=== PATIENT | female | born 1940 | race Caucasian/White ===

== ENCOUNTER 2020-06-15 11:21 | Emergency (ER) | payer MEDICARE ==
[~2020-06-15] VITALS: Ht 149.8 cm; Wt 63.5 kg
== END 2020-06-15 13:54 | disposition home or self-care (01) ==
LOC: ED 11:21
DX: R04.0 Epistaxis (principal); I10 Essential (primary) hypertension; Z88.0 Allergy status to penicillin; Z98.890 Other specified postprocedural states

== ENCOUNTER 2021-04-18 06:48 | Inpatient (IN) | payer MEDICARE ==
[~2021-04-18] VITALS: Ht 152.4 cm; Wt 66.5 kg
[2021-04-18 06:49] VITALS: BP 95/61
[2021-04-18] MEDS ORDERED: AMLODIPINE BESYL5 MG PO (06:54)
[2021-04-18] MEDS ORDERED: QUINAPRIL10 M1 PO (06:54)
[2021-04-18 07:30] LABS: BASO # 0.1 10*3/uL (0.0-0.1); BASO % 0.4 % (0.0-1.0); EOS # 0.2 10*3/uL (0.0-0.4); HEMATOCRIT 36.9 % (37.0-47.0); LYMPH # 1.7 10*3/uL (1.3-4.4); LYMPH % 14.1 % (27.0-41.0); MEAN CELL VOLUME 84.6 fl (81.0-99.0); MEAN CORPUSCULAR HGB 26.6 pg (27.0-31.0); MEAN CORPUSCULAR HGB CONC 31.4 g/dl (33.0-37.0); MEAN PLATELET VOLUME 9.2 fl (9.6-12.3); MONO # 0.7 10*3/uL (0.1-1.0); MONO % 5.9 % (3.0-9.0); NEUT # 9.2 10*3/uL (2.3-7.9); NEUT % 77.1 % (47.0-73.0); PLATELET COUNT AUTOMATED 245 10*3/uL (130-400); RED BLOOD COUNT 4.36 10*6/uL (4.10-5.10); RED CELL DISTRI WIDTH 14.4 % (0-14.5); WHITE BLOOD COUNT 11.9 10*3/uL (4.8-10.8)
[2021-04-18 07:40] LABS: ACT PARTIAL THROMBO TIME 23.6 SECONDS (20.0-32.1); INTERNATIONAL NORM RATIO 1.1 (2.0-3.5)
[2021-04-18 07:46] LABS: CREATININE 1.33 mg/dL (0.55-1.02); POTASSIUM 3.4 mmol/L (3.5-5.1); TOTAL PROTEIN 6.8 gm/dL (6.4-8.2)
[2021-04-18 08:53] VITALS: BP 112/73
[2021-04-18 11:00] VITALS: BP 119/69
[2021-04-18 11:45] VITALS: BP 194/81
[2021-04-18 16:00] VITALS: BP 116/66
[2021-04-18 20:00] VITALS: BP 165/94
[2021-04-19] VITALS: BP 174/84
[2021-04-19 00:23] VITALS: BP 174/84
[2021-04-19 06:48] LABS: BASO % 0.3 % (0.0-1.0); EOS # 0.3 10*3/uL (0.0-0.4); EOS % 2.8 % (1.0-4.0); HEMATOCRIT 30.2 % (37.0-47.0); LYMPH % 21.8 % (27.0-41.0); MEAN CELL VOLUME 83.7 fl (81.0-99.0); MEAN CORPUSCULAR HGB 26.9 pg (27.0-31.0); MEAN CORPUSCULAR HGB CONC 32.1 g/dl (33.0-37.0); MEAN PLATELET VOLUME 9.5 fl (9.6-12.3); MONO # 0.7 10*3/uL (0.1-1.0); MONO % 7.4 % (3.0-9.0); NEUT # 6.1 10*3/uL (2.3-7.9); NEUT % 67.4 % (47.0-73.0); PLATELET COUNT AUTOMATED 200 10*3/uL (130-400); RED BLOOD COUNT 3.61 10*6/uL (4.10-5.10); RED CELL DISTRI WIDTH 14.7 % (0-14.5); WHITE BLOOD COUNT 9.1 10*3/uL (4.8-10.8)
[2021-04-19 06:54] LABS: ACT PARTIAL THROMBO TIME 23.5 SECONDS (20.0-32.1)
[2021-04-19 07:05] LABS: ALBUMIN 2.8 gm/dl (3.1-4.5); CHLORIDE 112 mmol/L (98-107); CREATININE 0.86 mg/dL (0.55-1.02); SGOT/AST 19 IU/L (3-35); SGPT/ALT 29 U/L (12-78); SODIUM 141 mmol/L (136-145)
[2021-04-19 07:15] LABS: ALKALINE PHOSPHATASE 67 U/L (45-117); THYROID STIM HORMONE (HS) 0.512 uIU/ml (0.358-4.75); TOTAL PROTEIN 6.1 gm/dL (6.4-8.2)
[2021-04-19 07:19] LABS: BUN 25 mg/dl (7-24)
[2021-04-19 08:00] VITALS: BP 191/88
[2021-04-19 09:41] VITALS: BP 163/89
[2021-04-19 12:00] VITALS: BP 182/96
[2021-04-19 13:58] VITALS: BP 133/82
== END 2021-04-19 15:07 | disposition home or self-care (01) | DRG 314 ==
LOC: ED 06:48 → EDHOLD 09:58 → 4E 09:58
PROVIDERS: Emergency Medicine; Family Medicine; ADMIT Internal Medicine; ATTEND Internal Medicine
DX: I95.9 Hypotension, unspecified (principal); N17.0 Acute kidney failure with tubular necrosis; E87.2 Acidosis; E44.0 Moderate protein-calorie malnutrition; D64.9 Anemia, unspecified; E87.6 Hypokalemia; E83.41 Hypermagnesemia; R73.9 Hyperglycemia, unspecified; I10 Essential (primary) hypertension; R04.0 Epistaxis; M40.202 Unspecified kyphosis, cervical region; Z88.0 Allergy status to penicillin; Z79.899 Other long term (current) drug therapy; Z68.28 Body mass index [BMI] 28.0-28.9, adult

== ENCOUNTER 2021-12-24 05:18 | Emergency (ER) | payer MEDICARE ==
[~2021-12-24] VITALS: Ht 152.4 cm; Wt 63.5 kg
[~2021-12-24 05:18] MED LIST: AMLODIPINE BESYL5 MG PO; QUINAPRIL10 M1 PO
[2021-12-24 06:34] LABS: BASO % 0.4 % (0.0-1.0); EOS # 0.1 10*3/uL (0.0-0.4); EOS % 0.9 % (1.0-4.0); HEMATOCRIT 40.5 % (37.0-47.0); LYMPH # 1.2 10*3/uL (1.3-4.4); LYMPH % 12.8 % (27.0-41.0); MEAN CELL VOLUME 83.9 fl (81.0-99.0); MEAN CORPUSCULAR HGB 27.1 pg (27.0-31.0); MEAN CORPUSCULAR HGB CONC 32.3 g/dl (33.0-37.0); MEAN PLATELET VOLUME 9.4 fl (9.6-12.3); MONO # 0.5 10*3/uL (0.1-1.0); MONO % 5.9 % (3.0-9.0); NEUT # 7.3 10*3/uL (2.3-7.9); NEUT % 79.7 % (47.0-73.0); PLATELET COUNT AUTOMATED 231 10*3/uL (130-400); RED BLOOD COUNT 4.83 10*6/uL (4.10-5.10); WHITE BLOOD COUNT 9.2 10*3/uL (4.8-10.8)
[2021-12-24] MEDS ORDERED: VIBRAMYCIN100 MG PO (08:07)
== END 2021-12-24 07:31 | disposition home or self-care (01) ==
LOC: ED 05:18
PROVIDERS: Emergency Medicine
DX: R04.0 Epistaxis (principal); Z88.0 Allergy status to penicillin; Z79.899 Other long term (current) drug therapy; I10 Essential (primary) hypertension

== ENCOUNTER → 2021-12-30 | Day surgery (SDC) | payer MEDICARE ==
[~2021-12-30] VITALS: Ht 149.8 cm; Wt 63.5 kg
[2021-12-30] VITALS (7 sets, daily range): BP systolic 158–184; BP diastolic 84–130
[~2021-12-30] MED LIST changes: +VIBRAMYCIN100 MG PO
== END | disposition home or self-care (01) ==
LOC: SDC 12-26 14:00
PROVIDERS: ATTEND Specialist
DX: R04.0 Epistaxis (principal)